=== PATIENT | male | born 1940 | race Caucasian/White ===

== ENCOUNTER 2022-04-06 15:04 | Emergency (ER) | payer OTHER, MEDICAID ==
[~2022-04-06] VITALS: Ht 160 cm; Wt 68.0 kg
[2022-04-06 16:00] VITALS: BP_SYST 148
[2022-04-06] MEDS ORDERED: ACET325T PO (19:35)
--- NOTE | 2022-04-06 19:52 | NUR ---
1830- seen and evaluated by er md as documented
[2022-04-06 19:53] VITALS: BP_SYST 145
--- NOTE | 2022-04-06 19:53 | NUR ---
Patient given written and verbal discharge instructions and verbalizes understanding. ER MD discussed with patient the results and care provided. Patient in stable condition. Rx of Tylenol extra strength given. Patient educated on pain management and to follow up with PMD. Opportunity for questions provided and answered.
== END 2022-04-06 19:53 | disposition home or self-care (01) ==
LOC: SED 15:04
DX: S00.01XA Abrasion of scalp, initial encounter (principal); Z79.899 Other long term (current) drug therapy; V89.2XXA Person injured in unspecified motor-vehicle accident, traffic, initial encounter; Y93.89 Activity, other specified; Y92.89 Other specified places as the place of occurrence of the external cause; Y99.8 Other external cause status
CPT/HCPCS: 70450-TC; 72125-TC; 76376; 99284